=== PATIENT | male | born 1950 | race Caucasian/White ===

== ENCOUNTER → 2017-08-09 | Outpatient (CLI) | payer MEDICARE, BC | LOC: M LAB 12:09 | PROVIDERS: ATTEND Urology | DX: Z12.5 Encounter for screening for malignant neoplasm of prostate (principal) ==

== ENCOUNTER → 2022-08-25 | Outpatient (CLI) | payer MEDICARE, BC ==
[~2022-08-25] MED LIST: AMLO1TAB24 PO; CLAR10CA3 PO; CLAR10TA7 PO; CLAR1TAB13 PO; ELIQ5TAB PO; ENAL-36 PO; ENAL20TA11 PO; FOLI400T5 PO; HYDR12.55 PO; MYRB50TA PO; PRED10TA2 PO; SENN-83 PO; SENN8.6T28 PO; TIZA4CAP PO; VITA500T40 PO; mybetriq PO; vit b12 PO
[2022-08-25 15:16] LABS: CK-MB VALUE MASS 5.5 NG/ML (<3.6); MB/CK RELATIVE INDEX 1.55 (< OR =4)
== END ==
LOC: M WUC 13:04
PROVIDERS: ATTEND Physician Assistant
DX: M25.512 Pain in left shoulder (principal)

== ENCOUNTER 2022-08-29 20:37 | Inpatient (IN) | payer MEDICARE, BC ==
[~2022-08-29] VITALS: Ht 177.8 cm; Wt 91.5 kg
[2022-08-29] MEDS: ATORVASTATIN 20 MG TAB PO SCH (21:00)
[2022-08-29 21:32] LABS: BASO % 0.1 % (0.0-1.0); HEMATOCRIT 40.4 % (42.0-52.0); HEMOGLOBIN 13.8 g/dl (13.5-17.5); LYMPH # 1.1 10^3/uL (1.5-5.0); LYMPH % 11.6 % (24.0-44.0); MEAN CORPUSCULAR HEMOGLOBIN 32.4 pg (27.0-33.0); MEAN CORPUSCULAR HGB CONC 34.2 g/dl (32.0-36.5); MEAN CORPUSCULAR VOLUME 94.8 fl (80.0-96.0); MONO # 0.7 10^3/uL (0.0-0.8); MONO % 7.6 % (2.0-8.0); NEUTROPHILS # 7.3 10^3/uL (1.5-8.5); NEUTROPHILS % 80.4 % (36.0-66.0); PLATELET COUNT, AUTOMATED 240 10^3/uL (150-450); RED BLOOD COUNT 4.26 10^6/uL (4.30-6.10); WHITE BLOOD COUNT 9.1 10^3/uL (4.0-10.0)
[2022-08-29 21:43] LABS: INR 1.12; PROTHROMBIN TIME 14.8 SECONDS (12.7-14.5)
[2022-08-29 21:44] LABS: PARTIAL THROMBOPLASTIN TIME 32.6 SECONDS (25.9-37.0)
[2022-08-29 22:04] LABS: CK-MB VALUE MASS 5.8 NG/ML (<3.6); MB/CK RELATIVE INDEX 2.94 (< OR =4)
[2022-08-29 22:12] LABS: ALBUMIN 3.7 GM/DL (3.2-5.2); ALT/SGPT 26 U/L (12-78); BILIRUBIN,DIRECT 0.2 MG/DL (0.0-0.2); BILIRUBIN,TOTAL 0.6 MG/DL (0.2-1.0); BLOOD UREA NITROGEN 16 MG/DL (7-18); CALCIUM LEVEL 9.1 MG/DL (8.8-10.2); CARBON DIOXIDE LEVEL 25 MEQ/L (21-32); CHLORIDE LEVEL 110 MEQ/L (98-107); GLOMERULAR FILTRATION RATE > 60.0 (>42); GLUCOSE, FASTING 108 MG/DL (70-100); POTASSIUM SERUM 4.3 MEQ/L (3.5-5.1); SODIUM LEVEL 140 MEQ/L (136-145); THYROID STIMULATING HORMONE 0.604 uIU/ML (0.358-3.740); TOTAL PROTEIN 7.2 GM/DL (6.4-8.2)
[2022-08-29 22:16] LABS: RSV AMPLIFICATION NEGATIVE (NEGATIVE)
[2022-08-29] MEDS ORDERED: AMLO1TAB24 PO (23:37)
[2022-08-29] MEDS ORDERED: CLAR10CA3 PO (23:37)
[2022-08-29] MEDS ORDERED: CLAR1TAB13 PO (23:37)
[2022-08-29] MEDS ORDERED: ELIQ5TAB PO (23:37)
[2022-08-29] MEDS ORDERED: SENN-83 PO (23:37)
[2022-08-29] MEDS ORDERED: vit b12 PO (23:37)
[2022-08-29] MEDS ORDERED: HYDR12.55 PO (23:37)
[2022-08-29] MEDS ORDERED: mybetriq PO (23:37)
[2022-08-29] MEDS ORDERED: ENAL20TA11 PO (23:37)
[2022-08-30] VITALS (12 sets, daily range): BP systolic 122–162; BP diastolic 62–76; O2SAT 94–99
[2022-08-30] MEDS ORDERED: VITA500T40 PO (04:54)
[2022-08-30] MEDS ORDERED: MYRB50TA PO (04:54)
[2022-08-30] MEDS ORDERED: SENN8.6T28 PO (04:54)
[2022-08-30] MEDS ORDERED: CLAR10TA7 PO (04:54)
[2022-08-30] MEDS ORDERED: ENAL-36 PO (04:54)
[2022-08-30] MEDS ORDERED: FOLI400T5 PO (04:54)
[2022-08-30] MEDS ORDERED: AMLO1TAB24 PO (04:54)
[2022-08-30] MEDS ORDERED: ELIQ5TAB PO (04:54)
[2022-08-30] MEDS ORDERED: HYDR12.55 PO (04:54)
[2022-08-30] MEDS ORDERED: TIZA4CAP PO (04:54)
[2022-08-30] MEDS ORDERED: PRED10TA2 PO (04:54)
[2022-08-30] MEDS ORDERED: HOME MED LIST COMPLETE! XX SCH (04:55)
[2022-08-30] MEDS: NS 1,000 ML IV SCH ×3 (05:05→16:33)
[2022-08-30 06:10] LABS: CHOLESTEROL LEVEL 162 MG/DL (<200); CHOLESTEROL RISK RATIO 1.975 (<5); HDL CHOLESTEROL 82 MG/DL (>40); LDL CHOLESTEROL 67 MG/DL (<100); NON-HDL-C 80 MG/DL; TRIGLYCERIDES LEVEL 65 MG/DL (<150)
[2022-08-30 08:55] LABS: HEMATOCRIT 39.3 % (42.0-52.0); HEMOGLOBIN 13.1 g/dl (13.5-17.5); MEAN CORPUSCULAR HEMOGLOBIN 32.5 pg (27.0-33.0); MEAN CORPUSCULAR HGB CONC 33.3 g/dl (32.0-36.5); MEAN CORPUSCULAR VOLUME 97.5 fl (80.0-96.0); PLATELET COUNT, AUTOMATED 203 10^3/uL (150-450); RED BLOOD COUNT 4.03 10^6/uL (4.30-6.10); WHITE BLOOD COUNT 8.4 10^3/uL (4.0-10.0)
[2022-08-30] MEDS ORDERED: amLODIPine 5 MG TAB PO SCH (09:00)
[2022-08-30] MEDS: APIXABAN 5 MG TAB (ELIQUIS) PO SCH ×2 (09:28→20:48)
[2022-08-30] MEDS: hydroCHLOROthiazide 12.5 MG CAPSULE PO SCH (09:28)
[2022-08-30] MEDS: ASPIRIN 81 MG CHEW TABLET PO SCH (09:28)
[2022-08-30 09:29] LABS: ALBUMIN 3.1 GM/DL (3.2-5.2); ALT/SGPT 22 U/L (12-78); BILIRUBIN,TOTAL 0.6 MG/DL (0.2-1.0); BLOOD UREA NITROGEN 19 MG/DL (7-18); CALCIUM LEVEL 8.7 MG/DL (8.8-10.2); CARBON DIOXIDE LEVEL 26 MEQ/L (21-32); CHLORIDE LEVEL 112 MEQ/L (98-107); CREATININE FOR GFR 1.03 MG/DL (0.70-1.30); GLOMERULAR FILTRATION RATE > 60.0 (>42); GLUCOSE, FASTING 88 MG/DL (70-100); SODIUM LEVEL 143 MEQ/L (136-145)
[2022-08-30] MEDS: ENALAPRIL MALEATE 5 MG TAB PO SCH ×2 (09:51→20:56)
[2022-08-30] MEDS: ATORVASTATIN 20 MG TAB PO SCH (20:48)
[2022-08-31] VITALS (10 sets, daily range): BP systolic 127; BP diastolic 59–71; O2SAT 92–97
[2022-08-31 04:47] LABS: HEMATOCRIT 39.3 % (42.0-52.0); HEMOGLOBIN 13.3 g/dl (13.5-17.5); MEAN CORPUSCULAR HEMOGLOBIN 32.5 pg (27.0-33.0); MEAN CORPUSCULAR HGB CONC 33.8 g/dl (32.0-36.5); MEAN CORPUSCULAR VOLUME 96.1 fl (80.0-96.0); PLATELET COUNT, AUTOMATED 200 10^3/uL (150-450); RED BLOOD COUNT 4.09 10^6/uL (4.30-6.10); WHITE BLOOD COUNT 6.6 10^3/uL (4.0-10.0)
[2022-08-31 05:12] LABS: BLOOD UREA NITROGEN 18 MG/DL (7-18); CALCIUM LEVEL 8.7 MG/DL (8.8-10.2); CARBON DIOXIDE LEVEL 28 MEQ/L (21-32); CHLORIDE LEVEL 108 MEQ/L (98-107); CREATININE FOR GFR 0.98 MG/DL (0.70-1.30); GLOMERULAR FILTRATION RATE > 60.0 (>42); GLUCOSE, FASTING 89 MG/DL (70-100); POTASSIUM SERUM 3.8 MEQ/L (3.5-5.1); SODIUM LEVEL 140 MEQ/L (136-145)
[2022-08-31] MEDS ORDERED: ASPI81CH8 PO (08:31)
[2022-08-31] MEDS ORDERED: ATOR1TAB21 PO (08:31)
[2022-08-31] MEDS ORDERED: predniSONE 10 MG TAB PO ONE (08:45)
[2022-08-31] MEDS ORDERED: FLUBLOK(EGG FREE)(QUAD)INFLUENZA VACC 0.5ML SYRINGE 18YRS & OLDER IM.IMMUN ONE (09:00)
[2022-08-31] MEDS: APIXABAN 5 MG TAB (ELIQUIS) PO SCH (09:15)
[2022-08-31] MEDS: ASPIRIN 81 MG CHEW TABLET PO SCH (09:15)
[2022-08-31] MEDS: hydroCHLOROthiazide 12.5 MG CAPSULE PO SCH (09:51)
[2022-08-31] MEDS: ENALAPRIL MALEATE 5 MG TAB PO SCH (09:51)
== END 2022-08-31 11:32 | disposition home or self-care (01) | DRG 69 ==
LOC: M ED 20:37 → EDBD 20:37 → M ED INP 08-30 03:05 → ENRESERV 08-30 14:49 → M PCU 08-30 16:22
PROVIDERS: ADMIT Family Medicine; ATTEND Internal Medicine
DX: G45.9 Transient cerebral ischemic attack, unspecified (principal); I77.1 Stricture of artery; I10 Essential (primary) hypertension; I48.0 Paroxysmal atrial fibrillation; Z79.01 Long term (current) use of anticoagulants; R00.1 Bradycardia, unspecified; Z91.013 Allergy to seafood; Z88.0 Allergy status to penicillin; Z88.8 Allergy status to other drugs, medicaments and biological substances; Z79.82 Long term (current) use of aspirin; Z79.899 Other long term (current) drug therapy

== ENCOUNTER → 2024-11-06 | Outpatient (CLI) | payer MEDICARE, BC ==
[~2024-11-06] MED LIST changes: +ASPI81CH8 PO; +ATOR1TAB21 PO; -ENAL-36 PO; +ENAL1TAB50 PO; +ENAL1TAB52 PO; -ENAL20TA11 PO; +SENN-187 PO; -SENN-83 PO
== END ==
LOC: M SOG 08:00
PROVIDERS: ATTEND Physician Assistant
DX: M79.644 Pain in right finger(s) (principal); R22.31 Localized swelling, mass and lump, right upper limb

== ENCOUNTER → 2025-11-07 | Outpatient (REF) | payer MEDICARE, BC ==
[2025-11-07 13:15] LABS: ESTIMATED AVERAGE GLUCOSE 123.0 MG/DL (60-110)
[2025-11-07 13:31] LABS: ALT/SGPT 38.0 U/L (7.0-40); AST/SGOT 54.0 U/L (<34); CALCIUM LEVEL 9.6 MG/DL (8.3-10.6); CARBON DIOXIDE LEVEL 26.0 MMOL/L (20-31); CHLORIDE LEVEL 100.0 MMOL/L (98-107); CHOLESTEROL LEVEL 92.0 MG/DL (<200); CHOLESTEROL RISK RATIO 1.61 (<5); CREATININE FOR GFR 1.17 MG/DL (0.70-1.30); GLOMERULAR FILTRATION RATE 64.6 (>42); LDL CHOLESTEROL 26.3 MG/DL (<100); NON-HDL-C 34.9 MG/DL; POTASSIUM SERUM 4.3 MMOL/L (3.5-5.1); PSA SCREENING 2.01 NG/ML (< 4.00); SODIUM LEVEL 136.0 MMOL/L (136-145); TRIGLYCERIDES LEVEL 43.0 MG/DL (<150)
== END ==
LOC: M LAB REF 12:05
PROVIDERS: ATTEND Student in an Organized Health Care Education/Training Program
DX: Z68.29 Body mass index [BMI] 29.0-29.9, adult (principal); I10 Essential (primary) hypertension; Z12.5 Encounter for screening for malignant neoplasm of prostate; Z79.899 Other long term (current) drug therapy
CPT/HCPCS: 80053; 80061; 83036; G0103